=== PATIENT | female | born 1980 ===

== ENCOUNTER → 2020-08-03 10:29 | Outpatient (BNVA) | payer SELFPAY | PROVIDERS: PCP Nurse Practitioner; Visit Provider Nurse Practitioner | DX: N91.2 Amenorrhea, unspecified (principal); R42 Dizziness and giddiness | CPT/HCPCS: 81025 ==

== ENCOUNTER → 2022-05-03 10:03 | Outpatient (BNVA) | payer SELFPAY | PROVIDERS: PCP Nurse Practitioner; Visit Provider Nurse Practitioner Family | DX: R42 Dizziness and giddiness (principal); H65.193 Other acute nonsuppurative otitis media, bilateral; F41.9 Anxiety disorder, unspecified; F32.A Depression, unspecified | CPT/HCPCS: 80053; 80061; 84443; 85025 ==

== ENCOUNTER 2023-09-22 09:53 | Outpatient (CLI) | payer OTHER, SELFPAY ==
--- NOTE | 2023-09-22 09:58 | MM_ITS ---
WS: [id number] SCREENING DIGITAL BREAST TOMOSYNTHESIS MAMMOGRAM WITH CAD HISTORY: SCREENING COMPARISON: None available. Bilateral CC and MLO with tomosynthesis and synthetic mammography submitted. Computer aided detection analyzed. Breast composition: The breasts are heterogeneously dense, which may obscure small masses. There is a n asymmetry in the superior RIGHT breast seen best on the MLO projection measuring 2.0 x 1.5 cm. This is probably a hamartoma. There does appear to be a fat containing center. This should be further amanda luated as there are no prior studies. LEFT breast is negative. MM/[place] [id number] IMPRESSION: BI-RADS: 0-Incomplete: Need additional imaging evaluation FOLLOW UP: Need Additional Imaging RIGHT breast: Spot compression views (MLO). True ML. Ultrasound to follow if ab normality persists.
== END 2023-09-22 09:54 | disposition home or self-care (01) ==
LOC: RAD 09:55
PROVIDERS: PCP Nurse Practitioner; Visit Provider Nurse Practitioner Family
DX: Z12.31 Encounter for screening mammogram for malignant neoplasm of breast (principal); R92.333 Mammographic heterogeneous density, bilateral breasts; N64.89 Other specified disorders of breast
CPT/HCPCS: 77063; 77067

== ENCOUNTER 2023-10-16 14:10 | Outpatient (CLI) | payer OTHER, SELFPAY ==
--- NOTE | 2023-10-16 14:14 | MM_ITS ---
WS: [id number] ADDITIONAL VIEWS RIGHT MAMMOGRAM WITH DIGITAL BREAST TOMOSYNTHESIS. RIGHT BREAST ULTRASOUND HISTORY: ABNORMAL MAMMOGRAM COMPARISON: 09/22/2023 RIGHT MAMMOGRAM: Spot compression views and true ML with digital breast tomosynthesis and SM. Partially obscured asymmetry in the upper outer quadrant of the RIGHT breast is identified. It may co ntain fat suggesting this is a benign fibroadenoma. This is best seen on the lateral projections. Are a of concern measures approximately 1.8 x 1.3 cm. RIGHT BREAST ULTRASOUND 2-D and color Doppler imaging submitted. Ultrasound was directed to the upper outer quadrant of the RIGHT breast. There is a hypoechoic mass w ith increased echogenicity in the periphery. There is no through transmission. This mass is of low ec hoes throughout with slightly irregular margins. Mass measures 1.4 x 1.4 x 1.0 cm. This does not have the typical appearance for benign hamartoma. Biopsy needs to be performed. MM/[place] [id number] IMPRESSION: BI-RADS: 4-Suspicious Finding-Biopsy Should Be Considered FOLLOW UP: Biopsy Recommended Ultrasound-guided biopsy recommended RIGHT breast mass 10:00.
== END 2023-10-16 14:11 | disposition home or self-care (01) ==
LOC: RAD 14:11
PROVIDERS: PCP Nurse Practitioner; Visit Provider Nurse Practitioner Family
DX: R92.8 Other abnormal and inconclusive findings on diagnostic imaging of breast (principal); N63.11 Unspecified lump in the right breast, upper outer quadrant
CPT/HCPCS: 76642; 77061; G0279

== ENCOUNTER 2023-11-05 13:02 | Outpatient (CLI) | payer OTHER, SELFPAY | END 2023-11-05 13:03 | disposition home or self-care (01) | LOC: RAD 13:02 | PROVIDERS: PCP Nurse Practitioner; Visit Provider Nurse Practitioner Family | DX: R92.8 Other abnormal and inconclusive findings on diagnostic imaging of breast (principal); D24.1 Benign neoplasm of right breast | CPT/HCPCS: 19083; 88305 ==

== ENCOUNTER 2024-11-03 09:09 | Outpatient (CLI) | payer OTHER, SELFPAY ==
--- NOTE | 2024-11-03 09:18 | XR_ITS ---
WS: [id number] Cervical spine, 7 views including both obliques and lateral views in flexion, extension and neutral position, 11/03/2024 Clinical Data: NECK PAIN Comparison: None. Findings: No compression fractures are seen. The disc heights are normal. There is no prevertebral soft tissue swelling. The right oblique views show no foraminal narrowing. There is foraminal narrowing on the left oblique at the C3- C4 level. No instability occurs on flexion or extension. The odontoid is unremarkable. The soft tissues of the neck and the lung apices are normal. XR/XR cervical spine min 6V [id number] Impression: 1. Foraminal narrowing on the left oblique at the C3-C4 level. 2. No instability occurs on flexion or extension.
--- NOTE | 2024-11-03 09:27 | MM_ITS ---
WS: [id number] BILATERAL SCREENING DIGITAL TOMOSYNTHESIS MAMMOGRAM WITH CAD HISTORY: SCREENING FOR BREAST CANCER COMPARISON: 10/16/2023, 09/22/2023 Bilateral CC and MLO views with tomosynthesis and synthetic mammography submitted. Computer aided detection analyzed. Breast composition: The breasts are heterogeneously dense, which may obscure small masses. No suspicious masses, microcalcifications or architectural distortion. Reidentified is the ill-defined mass in the upper outer quadrant of the RIGHT breast which now contains a biopsy clip. Prior biopsy was performed on 11/05/2023. No suspicious grouping of calcifications. MM/MM scr BI tomosynthesis [id number] IMPRESSION: BI-RADS: 2 - Benign FOLLOW UP: 1 Year Follow-up
== END 2024-11-03 09:10 | disposition home or self-care (01) ==
LOC: RAD 09:10
PROVIDERS: PCP Nurse Practitioner; Visit Provider Nurse Practitioner Family
DX: Z12.31 Encounter for screening mammogram for malignant neoplasm of breast (principal); R92.333 Mammographic heterogeneous density, bilateral breasts; I51.89 Other ill-defined heart diseases; N63.11 Unspecified lump in the right breast, upper outer quadrant; Z96.89 Presence of other specified functional implants
CPT/HCPCS: 72052; 77063; 77067